=== PATIENT | female | born 1995 | race Caucasian/White ===

== ENCOUNTER 2016-07-30 03:56 | Emergency (ER) | payer OTHER ==
[~2016-07-30] VITALS: Ht 162.6 cm; Wt 112.3 kg
--- OUTSIDE RECORDS SUMMARY | 2016-07-30 04:01 | XMS REPORT | Continuity of Care Document ---
Demographics Preferred Language Unknown Marital Status Unknown Congregational Affiliation Unknown Race Unknown Ethnic Group Unknown Author Author [facility] Organization [facility] Address Unknown Phone Unavailable Allergies Medications Problems Procedures Results Encounters ACCT No. Visit Date/Time Discharge Status Pt. Type Provider Facility Loc./Unit Complaint [id number] 04/02/2015 12:49:00 [facility] Unknown
--- OUTSIDE RECORDS SUMMARY | 2016-07-30 04:06 | XMS REPORT | Continuity of Care Document ---
Demographics Preferred Language Unknown Marital Status Unknown Quaker Affiliation Unknown Race Unknown Ethnic Group Unknown Author Author [facility] Organization [facility] Address Unknown Phone Unavailable Allergies Medications Problems Procedures Results Encounters ACCT No. Visit Date/Time Discharge Status Pt. Type Provider Facility Loc./Unit Complaint [id number] 04/02/2015 12:49:00 [facility] Unknown
[2016-07-30] MEDS ORDERED: ONDANSETRON 2 MG/ML (Z0FRAN) 2 ML VIAL IV ONE (04:25)
[2016-07-30] MEDS: SODIUM CHLORIDE FLUSH 10 ML SYR IV PRN ×2 (04:59→06:03)
[2016-07-30 05:16] LABS: MEAN CORPUSCULAR HEMOGLOBIN 30.6 PG (26.0-34.0); MEAN CORPUSCULAR HGB CONC 33.3 g/dL (31.0-37.0); MEAN CORPUSCULAR VOLUME 92 FL (80-100); MEAN PLATELET VOLUME 10.1 FL (6.0-9.5); PLATELET COUNT 312 10^3uL (150-450); WHITE BLOOD COUNT 15.33 10^3uL (4.0-11.0)
[2016-07-30 05:24] LABS: ALBUMIN 4.6 g/dL (3.4-5.0); ANION GAP 16.8 MEQ/L (3-15); CALCULATED IONIZED CALCIUM 3.7 mg/dL (3.8-4.6); TOTAL PROTEIN 8.5 g/dL (6.4-8.5)
[2016-07-30 05:43] LABS: BAND NEUTROPHILS % 3 % (0-6); LYMPHOCYTES # 0.8 #; MONOCYTES # 1.2 #; MONOCYTES % 8 % (3-11); SEGMENTED NEUTROPHILS % 84 % (51-67); TOTAL CELLS COUNTED 100
[2016-07-30 05:44] LABS: RBC MORPH NORMAL (NORMAL)
[2016-07-30] MEDS ORDERED: ONDA4TAB8 PO (05:58)
[2016-07-30] MEDS ORDERED: KETOROLAC 30 MG/ML (TORADOL) 1 ML VIAL IV ONE (06:00)
[2016-07-30 06:06] LABS: HCG,QUALITATIVE URINE Negative (Negative)
[2016-07-30 06:12] LABS: BILIRUBIN,URINE Negative (Negative); CLARITY,URINE Clear; COLOR,URINE Yellow; GLUCOSE, URINE (UA) Negative (Negative); LEUKOCYTE ESTERASE ,URINE Negative (Negative); PH,URINE 8.5 (5.0 - 8.0); UROBILINOGEN,URINE 0.2 mg/dL (0.2-1.0)
[2016-07-30 06:20] LABS: URINE CENTRIFUGED VOLUME 12 mL
[2016-07-30 06:25] VITALS: BP 112/63
== END 2016-07-30 06:32 | disposition home or self-care (01) ==
LOC: ED 04:02
DX: A08.4 Viral intestinal infection, unspecified (principal)
CPT/HCPCS: 36415; 80053; 81003; 81015; 81025; 83690; 85025; 96361; 96374; 96375; 99283; J1885; J2405; J7030; 99282